=== PATIENT | female | born 1975 | race Native Hawaiian/Other Pacific Islander ===

== ENCOUNTER 2016-08-09 10:19 | Emergency (ER) | payer BC ==
[~2016-08-09] VITALS: Ht 170.2 cm; Wt 129.7 kg
[~2016-08-09 10:19] MED LIST: ALLO300T23 PO; AMITRIPTYLIN75 MG PO; INDOMETHACIN50 MG PO; MELOXICAM7.5 MG OR; ROBAXIN-750750 MG PO
[2016-08-09] MEDS ORDERED: NEURONTIN800 MG PO (10:47)
[2016-08-09] MEDS ORDERED: ULORIC40 MG OR (10:47)
[2016-08-09] MEDS ORDERED: PRED5TAB3 PO (10:48)
[2016-08-09] MEDS ORDERED: SIMV20TA2 PO (10:48)
[2016-08-09] MEDS ORDERED: LISI20TA24 PO (10:50)
[2016-08-09] MEDS ORDERED: MULTIVITAMI1 PO (10:50)
[2016-08-09] MEDS ORDERED: DULO60CA2 OR (10:51)
[2016-08-09 12:34] VITALS: BP 121/65; TEMP 97
== END 2016-08-09 12:34 | disposition home or self-care (01) ==
LOC: ED 10:19
DX: T63.441A Toxic effect of venom of bees, accidental (unintentional), initial encounter (principal); L23.89 Allergic contact dermatitis due to other agents; Y92.29 Other specified public building as the place of occurrence of the external cause
CPT/HCPCS: 96374; 96375; 99284; J1200; J2780; J2930

== ENCOUNTER 2016-10-09 12:20 | Emergency (ER) | payer BC ==
[~2016-10-09] VITALS: Ht 172.7 cm; Wt 72.6 kg
[2016-10-09 12:15] VITALS: TEMP 98
[~2016-10-09 12:20] MED LIST changes: +DULO60CA2 OR; +LISI20TA24 PO; +MULTIVITAMI1 PO; +NEURONTIN800 MG PO; +PRED5TAB3 PO; +SIMV20TA2 PO; +ULORIC40 MG OR
[2016-10-09 13:18] VITALS: BP 136/85
== END 2016-10-09 13:18 | disposition home or self-care (01) ==
LOC: ED 12:20
DX: T63.441A Toxic effect of venom of bees, accidental (unintentional), initial encounter (principal); Y92.89 Other specified places as the place of occurrence of the external cause
CPT/HCPCS: 96372; 96374; 96375; 99284

== ENCOUNTER 2016-10-13 11:39 | Emergency (ER) | payer BC ==
[~2016-10-13] VITALS: Ht 180.3 cm; Wt 138.3 kg
[2016-10-13 13:14] VITALS: BP 150/105; TEMP 98
== END 2016-10-13 14:58 | disposition left against medical advice (07) ==
LOC: ED 11:39
DX: Z00.00 Encounter for general adult medical examination without abnormal findings (principal)
CPT/HCPCS: 99281

== ENCOUNTER 2017-03-09 14:04 | Outpatient (CLI) | payer BC | END 2017-03-09 14:10 | disposition short-term general hospital (02) | LOC: AMB 14:04 | DX: M79.604 Pain in right leg (principal); R26.89 Other abnormalities of gait and mobility | CPT/HCPCS: A0425; A0429 ==

== ENCOUNTER 2017-03-09 14:10 | Emergency (ER) | payer BC ==
[~2017-03-09] VITALS: Ht 170.2 cm; Wt 134.3 kg
[2017-03-09 14:10] VITALS: BP 123/74; TEMP 99
== END 2017-03-09 14:26 | disposition home or self-care (01) ==
LOC: ED 14:10
DX: M79.604 Pain in right leg (principal)
CPT/HCPCS: 99281

== ENCOUNTER 2017-03-28 08:08 | Outpatient (CLI) | payer BC | END 2017-03-28 09:30 | disposition home or self-care (01) | LOC: MRI 08:08 | DX: M62.81 Muscle weakness (generalized) (principal) | CPT/HCPCS: 36415; 82565; 84520 ==

== ENCOUNTER 2018-08-20 14:36 | Emergency (ER) | payer OTHER ==
[~2018-08-20] VITALS: Ht 170.2 cm; Wt 113.4 kg
[2018-08-20 14:42] VITALS: TEMP 98.2
[2018-08-20] MEDS ORDERED: AMLODIPINE BESYLATE PO (15:13)
[2018-08-20] MEDS ORDERED: METFTAB PO (15:13)
[2018-08-20] MEDS ORDERED: TRAZODONE HYDR150 MG PO (15:14)
[2018-08-20] MEDS ORDERED: TIZA4TAB5 PO (15:14)
[2018-08-20] MEDS ORDERED: CELEXA40 MG PO (15:15)
[2018-08-20 16:34] VITALS: BP 114/68
== END 2018-08-20 16:34 | disposition home or self-care (01) ==
LOC: ED 14:36
DX: T44.5X1A Poisoning by predominantly beta-adrenoreceptor agonists, accidental (unintentional), initial encounter (principal); R45.1 Restlessness and agitation
CPT/HCPCS: 99282

== ENCOUNTER 2018-09-01 00:07 | Outpatient (CLI) | payer OTHER ==
[~2018-09-01 00:07] MED LIST changes: +AMLODIPINE BESYLATE PO; +CELEXA40 MG PO; +METFTAB PO; +TIZA4TAB5 PO; +TRAZODONE HYDR150 MG PO
== END 2018-09-01 00:12 | disposition short-term general hospital (02) ==
LOC: AMB 00:07
DX: T14.91XA Suicide attempt, initial encounter (principal); T43.592A Poisoning by other antipsychotics and neuroleptics, intentional self-harm, initial encounter; R44.2 Other hallucinations
CPT/HCPCS: A0425; A0429

== ENCOUNTER 2018-09-01 00:17 | Emergency (ER) | payer OTHER ==
[~2018-09-01] VITALS: Ht 170.2 cm; Wt 115.7 kg
[2018-09-01 00:17] VITALS: TEMP 98.4
[2018-09-01 00:41] LABS: PLATELET COUNT 333 K/uL (152-353)
[2018-09-01 05:12] VITALS: BP 103/64
== END 2018-09-01 12:09 | disposition other institution (70) ==
LOC: ED 00:17
PROVIDERS: Emergency Medicine
DX: T14.91XA Suicide attempt, initial encounter (principal); F29 Unspecified psychosis not due to a substance or known physiological condition; T43.592A Poisoning by other antipsychotics and neuroleptics, intentional self-harm, initial encounter
CPT/HCPCS: 36415; 80053; 80307; 80320; 80329; 81000; 85027; 93005; 99285

== ENCOUNTER 2019-04-16 07:31 | Emergency (ER) | payer OTHER ==
[~2019-04-16] VITALS: Ht 170.2 cm; Wt 125.2 kg
[2019-04-16 07:38] VITALS: TEMP 97.7
[2019-04-16 09:03] VITALS: BP 138/62
== END 2019-04-16 09:03 | disposition home or self-care (01) ==
LOC: ED 07:31
DX: S61.112A Laceration without foreign body of left thumb with damage to nail, initial encounter (principal); W31.9XXA Contact with unspecified machinery, initial encounter; Y92.63 Factory as the place of occurrence of the external cause
CPT/HCPCS: 96372; 99283; J0696

== ENCOUNTER 2019-04-17 10:52 | Emergency (ER) | payer OTHER ==
[~2019-04-17] VITALS: Ht 170.2 cm; Wt 125.2 kg
[2019-04-17 11:03] VITALS: TEMP 97.2
[2019-04-17 12:20] VITALS: BP 152/88
== END 2019-04-17 12:20 | disposition home or self-care (01) ==
LOC: ED 10:52
PROC: 0HBQXZZ Excision of Finger Nail, External Approach (ICD-10-PCS; principal; 2019-04-17)
DX: S61.112D Laceration without foreign body of left thumb with damage to nail, subsequent encounter (principal)
CPT/HCPCS: 99283; J7040

== ENCOUNTER 2019-04-30 07:57 | Outpatient (CLI) | payer OTHER | END 2019-04-30 21:29 | disposition home or self-care (01) | LOC: RAD 07:57 | DX: M25.562 Pain in left knee (principal) ==

== ENCOUNTER 2019-06-28 12:26 | Emergency (ER) | payer OTHER ==
[~2019-06-28] VITALS: Ht 170.2 cm; Wt 125.2 kg
[2019-06-28 13:26] LABS: PLATELET COUNT 400 K/uL (152-353)
[2019-06-28 13:39] LABS: POTASSIUM 4.1 mmol/L (3.6-5.2)
[2019-06-28 15:44] VITALS: BP 126/61; TEMP 98.1
== END 2019-06-28 15:45 | disposition short-term general hospital (02) ==
LOC: ED 12:26
PROVIDERS: Emergency Medicine
DX: I82.402 Acute embolism and thrombosis of unspecified deep veins of left lower extremity (principal); M79.605 Pain in left leg; Z87.828 Personal history of other (healed) physical injury and trauma
CPT/HCPCS: 80053; 85027; 85379; 96365; 96372; 99283; 99284; J1885

== ENCOUNTER 2019-06-28 15:45 | Outpatient (CLI) | payer OTHER | END 2019-06-28 17:07 | disposition short-term general hospital (02) | LOC: AMB 15:45 | DX: I82.402 Acute embolism and thrombosis of unspecified deep veins of left lower extremity (principal); R79.1 Abnormal coagulation profile; M79.605 Pain in left leg | CPT/HCPCS: A0425; A0429 ==

== ENCOUNTER 2019-07-10 13:09 | Outpatient (CLI) | payer OTHER | END 2019-07-10 13:16 | disposition short-term general hospital (02) | LOC: AMB 13:09 | DX: R07.89 Other chest pain (principal); R06.02 Shortness of breath; R42 Dizziness and giddiness; R00.0 Tachycardia, unspecified; R94.31 Abnormal electrocardiogram [ECG] [EKG] | CPT/HCPCS: A0425; A0427 ==

== ENCOUNTER 2019-07-10 13:20 | Emergency (ER) | payer OTHER ==
[~2019-07-10] VITALS: Ht 170.2 cm; Wt 125.6 kg
[2019-07-10 13:49] LABS: PLATELET COUNT 525 K/uL (152-353)
[2019-07-10 13:57] LABS: POTASSIUM 4.3 mmol/L (3.6-5.2); SODIUM 139 mmol/L (136-145)
[2019-07-10 17:22] LABS: PARTIAL THROMBOPLASTIN TIME 31.6 SECONDS (24.5-33.6)
[2019-07-10 18:00] VITALS: BP 146/91; TEMP 98
== END 2019-07-10 18:00 | disposition short-term general hospital (02) ==
LOC: ED 13:20
PROVIDERS: Emergency Medicine
DX: R07.89 Other chest pain (principal); R79.89 Other specified abnormal findings of blood chemistry; R00.0 Tachycardia, unspecified
CPT/HCPCS: 80053; 82550; 83690; 83735; 84484; 85027; 85379; 85610; 85730; 93005; 96372; 96374; 96375; 99284; J1650; J1885; J2270; J2405

== ENCOUNTER 2019-07-10 18:17 | Outpatient (CLI) | payer OTHER | END 2019-07-10 19:27 | disposition short-term general hospital (02) | LOC: AMB 18:17 | DX: R07.89 Other chest pain (principal); M79.605 Pain in left leg; R79.1 Abnormal coagulation profile; R94.31 Abnormal electrocardiogram [ECG] [EKG] | CPT/HCPCS: A0425; A0427 ==